=== PATIENT | female | born 1965 | race Caucasian/White ===

== ENCOUNTER 2023-01-05 10:17 | Outpatient (REF) | payer OTHER, SELFPAY ==
[2023-01-05 11:26] LABS: MANUAL DIFF FLAG NO
[2023-01-05 12:12] LABS: Basophils Absolute Auto 0.1 X10*3/uL (0.0-0.2); Eosinophils Absolute Auto 0.1 X10*3/uL (0.0-0.4); Eosinophils Percent Auto 2.3 % (0-4); Hematocrit 26.8 % (37.0-47.0); Hemoglobin 7.1 g/dl (12.0-16.0); Imm Gran Abs Auto 0.03 X10*3/uL (0.00-0.03); Imm Gran Pct Auto 0.5 % (0.0-0.4); Lymphocytes Absolute Auto 1.7 X10*3/uL (1.2-4.9); Lymphocytes Percent Auto 27.1 % (20-40); Mean Corpuscular HGB Conc 26.5 g/dl (31.0-35.0); Mean Corpuscular Hemoglobin 17.6 pg (27.0-33.0); Mean Corpuscular Volume 66.5 fL (80.0-98.0); Mean Platelet Volume 8.8 fL (9.4-12.3); Monocytes Absolute Auto 0.6 X10*3/uL (0.1-1.2); Monocytes Percent Auto 9.9 % (2-11); Neutrophils Absolute Auto 3.6 x10*3/uL (2.0-8.3); Neutrophils Percent Auto 58.2 % (45-73); Platelet Count 418 X10*3/uL (160-400); Red Blood Count 4.03 X10*6/uL (4.20-5.50); Red Cell Distribution Width 19.4 % (11.0-16.0); White Blood Count 6.1 X10*3/uL (4.8-10.8)
[2023-01-05 12:42] LABS: Anion Gap 11 (12-20)
[2023-01-05 12:48] LABS: Blood Urea Nitrogen 16 mg/dL (9-16); Calcium 9.3 mg/dL (8.4-10.2); Carbon Dioxide 28 mmol/L (22-29); Chloride 105 mmol/L (96-108); Erythrocyte Sedimentation Rate 9 MM/HR (0-20); Estimated Glomerular Filt Rate > 60; Glucose Random 88 mg/dL (60-115); Potassium 4.4 mmol/L (3.3-5.1); Sodium 140 mmol/L (135-145)
[2023-01-07 16:48] LABS: IgA 386 mg/dL (47-310); IgG 1369 mg/dL (600-1640); IgM 97 mg/dL (50-300)
[2023-01-14 20:44] LABS: Asperg fumigatus Precip Abs NEGATIVE (NEGATIVE); Micropoly faeni Abs NEGATIVE (NEGATIVE); Pigeon serum Abs NEGATIVE (NEGATIVE); Saccharo pora viridis Abs NEGATIVE (NEGATIVE); Thermo candidus Abs NEGATIVE (NEGATIVE); Thermoa vulgaris #1 NEGATIVE (NEGATIVE)
== END 2023-01-05 10:18 | disposition home or self-care (01) ==
LOC: HO.LAB 10:17
PROVIDERS: PCP Internal Medicine; Visit Provider Hospitalist
DX: J45.909 Unspecified asthma, uncomplicated (principal); R91.8 Other nonspecific abnormal finding of lung field; Z91.048 Other nonmedicinal substance allergy status
CPT/HCPCS: 36415; 80048; 82784; 85025; 85652; 86331; 86606; 86609

== ENCOUNTER 2023-03-22 11:08 | Outpatient (AMB) | payer OTHER, SELFPAY ==
--- NOTE | 2023-03-22 11:16 | A.OFFVIS_ITS ---
Intake Vital Signs 03/22/23 11:17 Height 5 ft 6 in Weight 188 lb 4.396 oz BMI 30.4 BP 124/70 Blood Pressure Location Lt brachial Position Sitting Pulse 92 Pulse Source Pulse Oximeter Pulse Oximetry (%) 96 Oxygen Delivery Method Room Air Intake Visit Reasons: Abnormal PFT Survey Questionnaire Designer Required: No Allergies No Known Allergies Allergy (Verified 03/22/23 11:19) HPI HPI Comments History of Present Illness Details he patient is a 57 year woman with that knee long history of lifelong asthma. 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 She was followed closely by Allergy initially by Dr. Lancaster and then afterwards continue getting allergy shots for multiple things. However that her disease management nurse retired and she stop doing the allergy shots. She noticed that when she started doing the allergy shots her symptoms started coming back with significant shortness of breath and chest tightness. Recently her son was mowing the lawn and she developed significant chest tightness and difficulty breathing. The patient does not have any inhalers at this time. She did follow-up with a local disease management nurse who underwent blood work. She has severe allergies with an IgE level of above 600. She has significant mold allergies as well. Although no data about her eosinophil level. We talked about the possibility of a lytic bronchopulmonary aspergillosis but at this point her IgE level was not high enough will have to check her IgG precipitants and also check her eosinophil level. She did have a chest x-ray demonstrating hyperinflation of the lungs suggesting of significant air trapping. In therefore she also underwent a PFT done at [facility] which I reviewed which demonstrated a moderate to severe obstruction consistent moderate to severe COPD. The patient currently is not on any maintenance respiratory therapy. Will go ahead and optimize his respiratory therapy at this time. Additional blood work will be warranted as well. Also to note part of the blood work did come back including a hemoglobin of 7.1. I did call the patient but only left a message. I had a long weight is trying to get in touch with her primary care doctor's office about 15 minutes online waiting although unfortunate does not appear to have a physician back line. Therefore, I could not provide the information to her physician about this critically low hemoglobin. I will have my staff try to get through but it seems like it is very difficult to get through to get that information past sore. I hope that we can get that information over specially since is a critical issue. 03/22/2023 the patient is here for a pulmonary follow-up visit. Overall the patient is feeling better. She did follow-up with GI and also her primary care doctor regarding critical hemoglobin. She is currently on iron and she had a full workup in no clear explanation for the drop in her will and. That being said hemoglobin is now better. Indeed is helping her respiratory capacity. In addition to that she has responded well to the Trelegy inhaler. She does have a moderate obstruction on her PFTs suggesting a fixed obstruction although it would also be uncontrolled asthma. It could also been that she may have had a flare-up doing her PFTs. therefore, since she is doing well will continue with current respiratory regimen and not Singulair. The next visit will plan to do a spirometry to see if her obstructive physiology has some increase her stability. From an allergy standpoint the patient may go back to her allergy shots at this time his respiratory status is better. I did provide her with a peak flow. Her peak flow was close to 400 mL which is reassuring. The patient will continue to monitor the peak flows. If her peak flows decline then she will call for further recommendations. [facility] Medical History (Updated 01/05/23 @ 20:32 by Matias Patterson MD) Allergy to mold Anemia Asthma Bronchitis Social History (Updated 01/05/23 @ 10:27 by Bianca Mattson Raj) Patient Tobacco Use Status: Never used Tobacco Review of Systems Const Denies fever(s) Eyes Denies change in vision ENT Reports nasal congestion and Reports nasal discharge Card Denies chest pain and Denies dyspnea on exertion Resp Reports cough, Denies dyspnea on exertion and Denies wheezing GI Reports no additional complaints Musc Reports no additional complaints Skin/Breast Denies rash Neuro Reports no additional complaints Oliver/Lymph Denies easy bleeding, Denies easy bruising and Denies lymphadenopathy Aller/Immun Denies wheezing Physical Exam Vital Signs: Last Vital Signs Pulse 92 03/22/23 11:17 BP 124/70 03/22/23 11:17 Pulse Ox 96 03/22/23 11:17 Oxygen Delivery Method Room Air 03/22/23 11:17 BMI result Body Mass Index 30.4 Const General: comfortable HEENT Head: Yes normocephalic Eyes General: appearance normal, both eyes and all related structures Neck Neck: Yes supple Chest Chest palpation & inspection: normal inspection of the chest Resp Effort & Inspection: normal respiratory effort Auscultation: no wheezes and diminished lung sounds Cardio Rate: regular rate Rhythm: regular rhythm Heart sounds: S1 normal heart sound present and S2 normal heart sound present GI Palpation (GI): Soft to palpation Skin General skin exam: no rashes or lesions noted Extrem General: Yes no clubbing, cyanosis or edema Assessment & Plan Assessment & Plan (1) Asthma: Comment: uncontrolled with a moderate to severe obstruction and hyperinflated lungs. Severe allergies with an elevated IgE. Eosinophils are normal. Code(s): J45.909 - Unspecified asthma, uncomplicated Qualifiers: Asthma complication type: uncomplicated Asthma persistence: persistent Asthma severity: severe Qualified Code(s): J45.50 - Severe persistent asthma, uncomplicated (2) Bronchitis: Code(s): J40 - Bronchitis, not specified as acute or chronic (3) Allergy to mold: Code(s): Z91.048 - Other nonmedicinal substance allergy status (4) Anemia: Code(s): D64.9 - Anemia, unspecified Qualifiers: Anemia type: unspecified type Qualified Code(s): D64.9 - Anemia, unspecified Plan continue Trelegy 200 daily Add Singulair Peak flow meter provided OK to go back to allergy shots from a pulmonary standpoint Consider Biologic therapy if worsens SAHIL as needed F/U 3-4 months Medications: New montelukast (Singulair) 10 mg PO BEDTIME 30 days 30 tabs 11RF J45.909 - Unspecified asthma, uncomplicated Coding Level of Care Code Est Pt Level 4 (87047) Diagnoses Asthma J45.50 Asthma complication type: uncomplicated Asthma persistence: persistent Asthma severity: severe Bronchitis J40 Allergy to mold Z91.048 Anemia D64.9 Anemia type: unspecified type Time Spent (min) 20
[2023-03-22 11:17] VITALS: BP 124/70; PULSE 92; O2SAT 96; BMI 30.4
== END 2023-03-22 11:47 | disposition home or self-care (01) ==
PROVIDERS: PCP Internal Medicine; Visit Provider Hospitalist
DX: J45.50 Severe persistent asthma, uncomplicated (principal); J40 Bronchitis, not specified as acute or chronic; Z91.048 Other nonmedicinal substance allergy status; D64.9 Anemia, unspecified
CPT/HCPCS: 99214

== ENCOUNTER → 2023-03-22 11:08 | Outpatient (BNVA) | payer OTHER, SELFPAY | PROVIDERS: PCP Internal Medicine; Visit Provider Hospitalist | DX: J45.909 Unspecified asthma, uncomplicated (principal); Z91.048 Other nonmedicinal substance allergy status; J40 Bronchitis, not specified as acute or chronic; J45.40 Moderate persistent asthma, uncomplicated; J44.9 Chronic obstructive pulmonary disease, unspecified ==

== ENCOUNTER 2023-08-09 10:52 | Outpatient (AMB) | payer OTHER, SELFPAY ==
--- NOTE | 2023-08-09 11:18 | MHC.OFFVIS ---
Intake Vital Signs 08/09/23 11:19 Height 5 ft 6 in Weight 195 lb BMI 31.5 Pulse 89 Pulse Source Pulse Oximeter Pulse Oximetry (%) 97 Oxygen Delivery Method Room Air Intake Visit Reasons: Abnormal PFT Production Control Planner Required: No Allergies No Known Allergies Allergy (Verified 08/09/23 11:20) HPI HPI Comments History of Present Illness Details he patient is a 57 year woman with that knee long history of lifelong asthma. 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 She was followed closely by Allergy initially by Dr. Lancaster and then afterwards continue getting allergy shots for multiple things. However that her improvement director retired and she stop doing the allergy shots. She noticed that when she started doing the allergy shots her symptoms started coming back with significant shortness of breath and chest tightness. Recently her son was mowing the lawn and she developed significant chest tightness and difficulty breathing. The patient does not have any inhalers at this time. She did follow-up with a local improvement director who underwent blood work. She has severe allergies with an IgE level of above 600. She has significant mold allergies as well. Although no data about her eosinophil level. We talked about the possibility of a lytic bronchopulmonary aspergillosis but at this point her IgE level was not high enough will have to check her IgG precipitants and also check her eosinophil level. She did have a chest x-ray demonstrating hyperinflation of the lungs suggesting of significant air trapping. In therefore she also underwent a PFT done at [facility] which I reviewed which demonstrated a moderate to severe obstruction consistent moderate to severe COPD. The patient currently is not on any maintenance respiratory therapy. Will go ahead and optimize his respiratory therapy at this time. Additional blood work will be warranted as well. Also to note part of the blood work did come back including a hemoglobin of 7.1. I did call the patient but only left a message. I had a long weight is trying to get in touch with her primary care doctor's office about 15 minutes online waiting although unfortunate does not appear to have a physician back line. Therefore, I could not provide the information to her physician about this critically low hemoglobin. I will have my staff try to get through but it seems like it is very difficult to get through to get that information past sore. I hope that we can get that information over specially since is a critical issue. 03/22/2023 the patient is here for a pulmonary follow-up visit. Overall the patient is feeling better. She did follow-up with GI and also her primary care doctor regarding critical hemoglobin. She is currently on iron and she had a full workup in no clear explanation for the drop in her will and. That being said hemoglobin is now better. Indeed is helping her respiratory capacity. In addition to that she has responded well to the Trelegy inhaler. She does have a moderate obstruction on her PFTs suggesting a fixed obstruction although it would also be uncontrolled asthma. It could also been that she may have had a flare-up doing her PFTs. therefore, since she is doing well will continue with current respiratory regimen and not Singulair. The next visit will plan to do a spirometry to see if her obstructive physiology has some increase her stability. From an allergy standpoint the patient may go back to her allergy shots at this time his respiratory status is better. I did provide her with a peak flow. Her peak flow was close to 400 mL which is reassuring. The patient will continue to monitor the peak flows. If her peak flows decline then she will call for further recommendations. 08/09/2023 the patient is here for pulmonary follow-up visit. The patient overall has been doing well. She continues on the Trelegy 200 also started the singular. She overall has been doing okay. Has not had to use her rescue inhaler which is reassuring except for once when she was burning some papers in the backyard and resulting in bronchospasms. Where were season usually seen the springtime. The patient is no longer getting allergy shots. If her symptoms worsen it would be reasonable to consider biologic therapy. Will have her get blood work done in the springtime to assess her eosinophil level and also her IgE level. From a hemoglobin standpoint the patient is doing better therefore that is no longer an active issue. He COUNTS INCLUDE 234 BEDS AT THE [facility] Medical History (Updated 08/09/23 @ 22:17 by Matias Patterson MD) Anemia Bronchitis Allergy to mold Asthma Social History (Updated 01/05/23 @ 10:27 by MARY Mcelroy) Patient Tobacco Use Status: Never used Tobacco Review of Systems Const Denies fever(s) Eyes Denies change in vision ENT Reports nasal congestion and Reports nasal discharge Card Denies chest pain and Denies dyspnea on exertion Resp Reports cough, Denies dyspnea on exertion and Denies wheezing GI Reports no additional complaints Musc Reports no additional complaints Skin/Breast Denies rash Neuro Reports no additional complaints Oliver/Lymph Denies easy bleeding, Denies easy bruising and Denies lymphadenopathy Aller/Immun Denies wheezing Physical Exam Vital Signs: Last Vital Signs Pulse 89 08/09/23 11:19 Pulse Ox 97 08/09/23 11:19 Oxygen Delivery Method Room Air 08/09/23 11:19 BMI result Body Mass Index 31.5 Const General: comfortable HEENT Head: Yes normocephalic Eyes General: appearance normal, both eyes and all related structures Neck Neck: Yes supple Chest Chest palpation & inspection: normal inspection of the chest Resp Effort & Inspection: normal respiratory effort Auscultation: no wheezes and diminished lung sounds Cardio Rate: regular rate Rhythm: regular rhythm Heart sounds: S1 normal heart sound present and S2 normal heart sound present GI Palpation (GI): Soft to palpation Skin General skin exam: no rashes or lesions noted Extrem General: Yes no clubbing, cyanosis or edema Office Procedures Flu Questionnaire Does the patient have a severe egg allergy?: No Does the patient have severe life threatening allergies?: No Does the patient have a fever or illness today?: No Has the patient ever had Guillain-Laurel Syndrome?: No Has the patient ever had any past reaction to a flu shot?: No Immunizations flu vacc [id number] 6mos up(PF) 60 mcg(15 mcgx4)/0.5 mL IM syringe Performing Provider: Matias Patterson MD Performing Location: [facility] Administered by: Annette Ruiz LPN on 08/09/23 11:39 Dose Route Admin Location Dispensed Lot Number Expiration Date [id number] 0.5 mL IM Left Deltoid 0.5 mL [id number] 03/10/24 [id number] Scaffold VIS Given Date VIS Provided VIS Publication Date 08/09/23 Single Vaccine 21 Eligibility Eligibility Date Funding Source Not [facility] Eligible 08/09/23 Private Assessment & Plan Assessment & Plan (1) Asthma: Comment: uncontrolled with a moderate to severe obstruction and hyperinflated lungs. Severe allergies with an elevated IgE. Eosinophils are normal. Code(s): J45.909 - Unspecified asthma, uncomplicated Qualifiers: Asthma complication type: uncomplicated Asthma persistence: persistent Asthma severity: severe Qualified Code(s): J45.50 - Severe persistent asthma, uncomplicated (2) Bronchitis: Comment: better Code(s): J40 - Bronchitis, not specified as acute or chronic (3) Allergy to mold: Code(s): Z91.048 - Other nonmedicinal substance allergy status (4) Anemia: Comment: better Code(s): D64.9 - Anemia, unspecified Qualifiers: Anemia type: unspecified type Qualified Code(s): D64.9 - Anemia, unspecified Plan continue Trelegy 200 daily continue Singulair Peak flow SAHIL as needed spring bloddwork consider Biologic therapy if symptoms worsen F/U 4 months Orders: Orders Complete Blood Count Auto Diff Today J45.909 - Unspecified asthma, uncomplicated, Z91.048 - Other nonmedicinal substance allergy status Erythrocyte Sedimentation Rate Today J45.909 - Unspecified asthma, uncomplicated, Z91.048 - Other nonmedicinal substance allergy status Influenza [id number] Immunization Today J45.909 - Unspecified asthma, uncomplicated Basic Metabolic Panel Today J45.909 - Unspecified asthma, uncomplicated, Z91.048 - Other nonmedicinal substance allergy status Immunoglobulin E Today J45.909 - Unspecified asthma, uncomplicated, Z91.048 - Other nonmedicinal substance allergy status Coding Level of Care Code Est Pt Level 4 (66721) Diagnoses Severe persistent asthma without complication J45.50 Asthma complication type: uncomplicated Asthma persistence: persistent Asthma severity: severe Bronchitis J40 Allergy to mold Z91.048 Anemia, unspecified type D64.9 Anemia type: unspecified type Time Spent (min) 16
[2023-08-09 11:19] VITALS: PULSE 89; O2SAT 97; BMI 31.5
== END 2023-08-09 11:41 | disposition home or self-care (01) ==
PROVIDERS: PCP Internal Medicine; Visit Provider Hospitalist
DX: J45.50 Severe persistent asthma, uncomplicated (principal); J40 Bronchitis, not specified as acute or chronic; Z91.048 Other nonmedicinal substance allergy status; D64.9 Anemia, unspecified
CPT/HCPCS: 99214

== ENCOUNTER → 2023-08-09 10:52 | Outpatient (BNVA) | payer OTHER, SELFPAY | PROVIDERS: PCP Internal Medicine; Visit Provider Hospitalist | DX: J45.40 Moderate persistent asthma, uncomplicated (principal); J40 Bronchitis, not specified as acute or chronic; D64.9 Anemia, unspecified; Z91.048 Other nonmedicinal substance allergy status; Z79.899 Other long term (current) drug therapy; Z23 Encounter for immunization | CPT/HCPCS: 90471; 90686 ==

== ENCOUNTER 2024-01-03 10:57 | Outpatient (AMB) | payer OTHER, MEDICAID, SELFPAY ==
--- NOTE | 2024-01-03 11:00 | MHC.OFFVIS ---
Vital Signs 01/03/24 11:01 Height 5 ft 6 in Weight 190 lb BMI 30.7 Pulse 89 Pulse Source Pulse Oximeter Pulse Oximetry (%) 95 Oxygen Delivery Method Room Air Intake Visit Reasons: Asthma Director Of Undergraduate Admissions Required: No Allergies No Known Allergies Allergy (Verified 01/03/24 11:02) HPI Comments Details: he patient is a 58 year woman with that knee long history of lifelong asthma. 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 She was followed closely by Allergy initially by Dr. Lancaster and then afterwards continue getting allergy shots for multiple things. However that her wire coiler machine operator retired and she stop doing the allergy shots. She noticed that when she started doing the allergy shots her symptoms started coming back with significant shortness of breath and chest tightness. Recently her son was mowing the lawn and she developed significant chest tightness and difficulty breathing. The patient does not have any inhalers at this time. She did follow-up with a local wire coiler machine operator who underwent blood work. She has severe allergies with an IgE level of above 600. She has significant mold allergies as well. Although no data about her eosinophil level. We talked about the possibility of a lytic bronchopulmonary aspergillosis but at this point her IgE level was not high enough will have to check her IgG precipitants and also check her eosinophil level. She did have a chest x-ray demonstrating hyperinflation of the lungs suggesting of significant air trapping. In therefore she also underwent a PFT done at [facility] which I reviewed which demonstrated a moderate to severe obstruction consistent moderate to severe COPD. The patient currently is not on any maintenance respiratory therapy. Will go ahead and optimize his respiratory therapy at this time. Additional blood work will be warranted as well. Also to note part of the blood work did come back including a hemoglobin of 7.1. I did call the patient but only left a message. I had a long weight is trying to get in touch with her primary care doctor's office about 15 minutes online waiting although unfortunate does not appear to have a physician back line. Therefore, I could not provide the information to her physician about this critically low hemoglobin. I will have my staff try to get through but it seems like it is very difficult to get through to get that information past sore. I hope that we can get that information over specially since is a critical issue. 03/22/2023 the patient is here for a pulmonary follow-up visit. Overall the patient is feeling better. She did follow-up with GI and also her primary care doctor regarding critical hemoglobin. She is currently on iron and she had a full workup in no clear explanation for the drop in her will and. That being said hemoglobin is now better. Indeed is helping her respiratory capacity. In addition to that she has responded well to the Trelegy inhaler. She does have a moderate obstruction on her PFTs suggesting a fixed obstruction although it would also be uncontrolled asthma. It could also been that she may have had a flare-up doing her PFTs. therefore, since she is doing well will continue with current respiratory regimen and not Singulair. The next visit will plan to do a spirometry to see if her obstructive physiology has some increase her stability. From an allergy standpoint the patient may go back to her allergy shots at this time his respiratory status is better. I did provide her with a peak flow. Her peak flow was close to 400 mL which is reassuring. The patient will continue to monitor the peak flows. If her peak flows decline then she will call for further recommendations. 01/03/2024 the patient is here for pulmonary follow-up visit. The patient overall has been doing well. She continues on the Trelegy 200 also started the singular. She overall has been doing okay. Has not had to use her rescue inhaler which is reassuring except for once when she was burning some papers in the backyard and resulting in bronchospasms. Where were season usually seen the springtime. The patient is no longer getting allergy shots. If her symptoms worsen it would be reasonable to consider biologic therapy. the patient is concerned because her blood pressure has been elevated. She is wondering if the Trelegy could be doing that. Will go ahead and decrease her Trelegy to the 100 mcg dose to minimize any adverse effects. [facility] Medical History (Updated 01/03/24 @ 20:55 by Matias Patterson MD) Anemia Bronchitis Allergy to mold Asthma Social History (Updated 01/05/23 @ 10:27 by MARY Mcelroy) Patient Tobacco Use Status: Never used Tobacco Review of Systems Const Denies fever(s) Eyes Denies change in vision ENT Reports nasal congestion and Reports nasal discharge Card Denies chest pain and Denies dyspnea on exertion Resp Reports cough, Denies dyspnea on exertion and Denies wheezing GI Reports no additional complaints Musc Reports no additional complaints Skin/Breast Denies rash Neuro Reports no additional complaints Oliver/Lymph Denies easy bleeding, Denies easy bruising and Denies lymphadenopathy Aller/Immun Denies wheezing Physical Exam Vital Signs: Last Vital Signs Pulse 89 01/03/24 11:01 Pulse Ox 95 01/03/24 11:01 Oxygen Delivery Method Room Air 01/03/24 11:01 BMI result Body Mass Index 30.7 Const General: comfortable HEENT Head: Yes normocephalic Eyes General: appearance normal, both eyes and all related structures Neck Neck: Yes supple Chest Chest palpation & inspection: normal inspection of the chest Resp Effort & Inspection: normal respiratory effort Auscultation: no wheezes and diminished lung sounds Cardio Rate: regular rate Rhythm: regular rhythm Heart sounds: S1 normal heart sound present and S2 normal heart sound present GI Palpation (GI): Soft to palpation Skin General skin exam: no rashes or lesions noted Extrem General: Yes no clubbing, cyanosis or edema Assessment & Plan Assessment & Plan (1) Asthma: Comment: Severe allergies with an elevated IgE. Eosinophils are normal. Code(s): J45.909 - Unspecified asthma, uncomplicated Category: Medical Qualifiers: Asthma complication type: uncomplicated Asthma persistence: persistent Asthma severity: severe Qualified Code(s): J45.50 - Severe persistent asthma, uncomplicated (2) Bronchitis: Comment: better Code(s): J40 - Bronchitis, not specified as acute or chronic Category: Medical (3) Allergy to mold: Code(s): Z91.048 - Other nonmedicinal substance allergy status Category: Medical (4) Anemia: Comment: better Code(s): D64.9 - Anemia, unspecified Category: Medical Qualifiers: Anemia type: unspecified type Qualified Code(s): D64.9 - Anemia, unspecified Plan continue Trelegy 200 daily->100mcg continue Singulair SAHIL as needed spring time bloddwork consider Biologic therapy if symptoms worsen F/U 6-12 months Medications: New [id number] 100-62.5-25 mcg (Trelegy Ellipta) 1 inh inhalation DAILY 30 days 60 ea 11RF J44.9 - Chronic obstructive pulmonary disease, unspecified Coding Level of Care Code Tele Est Pt Level 4 (94936) Diagnoses Severe persistent asthma without complication J45.50 Asthma complication type: uncomplicated Asthma persistence: persistent Asthma severity: severe Bronchitis J40 Allergy to mold Z91.048 Anemia, unspecified type D64.9 Anemia type: unspecified type Time Spent (min) 17
[2024-01-03 11:01] VITALS: PULSE 89; O2SAT 95; BMI 30.7
== END 2024-01-03 11:18 | disposition home or self-care (01) ==
PROVIDERS: PCP Internal Medicine; Visit Provider Hospitalist
DX: J45.50 Severe persistent asthma, uncomplicated (principal); J40 Bronchitis, not specified as acute or chronic; Z91.048 Other nonmedicinal substance allergy status; D64.9 Anemia, unspecified
CPT/HCPCS: 99214

== ENCOUNTER → 2024-01-03 10:57 | Outpatient (BNVA) | payer OTHER, MEDICAID, SELFPAY | PROVIDERS: PCP Internal Medicine; Visit Provider Hospitalist | DX: J45.909 Unspecified asthma, uncomplicated (principal); Z91.048 Other nonmedicinal substance allergy status; J40 Bronchitis, not specified as acute or chronic; J45.40 Moderate persistent asthma, uncomplicated; J44.9 Chronic obstructive pulmonary disease, unspecified ==

== ENCOUNTER 2025-01-02 11:09 | Outpatient (AMB) | payer OTHER, SELFPAY ==
[2025-01-02 11:12] VITALS: BP 134/66; PULSE 85; O2SAT 97; BMI 31.7
--- NOTE | 2025-01-02 11:12 | MHC.OFFVIS ---
Vital Signs 01/02/25 11:12 Height 5 ft 6 in Weight 196 lb 3.382 oz BMI 31.7 BP 134/66 Blood Pressure Location Lt brachial Position Sitting Pulse 85 Pulse Source Pulse Oximeter Pulse Oximetry (%) 97 Oxygen Delivery Method Room Air Intake Visit Reasons: Asthma Dental Service Chief Required: No Accompanied by: Self / Same As Patient Allergies No Known Allergies Allergy (Verified 01/02/25 11:16) HPI Comments Details: 59 year woman with that knee long history of lifelong asthma. 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 She was followed closely by Allergy initially by Dr. Lancaster and then afterwards continue getting allergy shots for multiple things. However that her helicopter utility aircrewman retired and she stop doing the allergy shots. She noticed that when she started doing the allergy shots her symptoms started coming back with significant shortness of breath and chest tightness. Recently her son was mowing the lawn and she developed significant chest tightness and difficulty breathing. The patient does not have any inhalers at this time. She did follow-up with a local helicopter utility aircrewman who underwent blood work. She has severe allergies with an IgE level of above 600. She has significant mold allergies as well. Although no data about her eosinophil level. We talked about the possibility of a lytic bronchopulmonary aspergillosis but at this point her IgE level was not high enough will have to check her IgG precipitants and also check her eosinophil level. She did have a chest x-ray demonstrating hyperinflation of the lungs suggesting of significant air trapping. In therefore she also underwent a PFT done at [facility] which I reviewed which demonstrated a moderate to severe obstruction consistent moderate to severe COPD. The patient currently is not on any maintenance respiratory therapy. Will go ahead and optimize his respiratory therapy at this time. Additional blood work will be warranted as well. Also to note part of the blood work did come back including a hemoglobin of 7.1. I did call the patient but only left a message. I had a long weight is trying to get in touch with her primary care doctor's office about 15 minutes online waiting although unfortunate does not appear to have a physician back line. Therefore, I could not provide the information to her physician about this critically low hemoglobin. I will have my staff try to get through but it seems like it is very difficult to get through to get that information past sore. I hope that we can get that information over specially since is a critical issue. 03/22/2023 the patient is here for a pulmonary follow-up visit. Overall the patient is feeling better. She did follow-up with GI and also her primary care doctor regarding critical hemoglobin. She is currently on iron and she had a full workup in no clear explanation for the drop in her will and. That being said hemoglobin is now better. Indeed is helping her respiratory capacity. In addition to that she has responded well to the Trelegy inhaler. She does have a moderate obstruction on her PFTs suggesting a fixed obstruction although it would also be uncontrolled asthma. It could also been that she may have had a flare-up doing her PFTs. therefore, since she is doing well will continue with current respiratory regimen and not Singulair. The next visit will plan to do a spirometry to see if her obstructive physiology has some increase her stability. From an allergy standpoint the patient may go back to her allergy shots at this time his respiratory status is better. I did provide her with a peak flow. Her peak flow was close to 400 mL which is reassuring. The patient will continue to monitor the peak flows. If her peak flows decline then she will call for further recommendations. 01/03/2024 the patient is here for pulmonary follow-up visit. The patient overall has been doing well. She continues on the Trelegy 200 also started the singular. She overall has been doing okay. Has not had to use her rescue inhaler which is reassuring except for once when she was burning some papers in the backyard and resulting in bronchospasms. Where were season usually seen the springtime. The patient is no longer getting allergy shots. If her symptoms worsen it would be reasonable to consider biologic therapy. the patient is concerned because her blood pressure has been elevated. She is wondering if the Trelegy could be doing that. Will go ahead and decrease her Trelegy to the 100 mcg dose to minimize any adverse effects. 01/02/2025 the patient is here for a pulmonary follow-up visit. She is doing well from the respiratory status. Her lungs are well and she does tolerate a respiratory inhalers as prescribed. She has not required any prednisone or her rescue inhaler. Her major issue issue is her nasal passages. Significant nasal congestion. The patient has been using nasal sprays with only partial improvement. Her allergies are more significant during the spring. She does have a follow up with her helicopter utility aircrewman soon. Based on her bloodwork she could consider Biologic therapies. The patient also had aCXR back in 2022 demonstrating alarge hiatal hernia. We did talk the importance of reflux diet and sleeping elevated. She had an EGD dumenting the Hiatal hernia. [facility] Medical History (Updated 01/02/25 @ 19:58 by Matias Patterson MD) Hiatal hernia Anemia Bronchitis Allergy to mold Asthma Social History (Updated 01/02/25 @ 11:19 by Dhara Mills CMA) Alcohol intake: current Alcohol intake frequency: holidays/special occasions only Patient Tobacco Use Status: Never used Tobacco Review of Systems Const Denies chills, Denies fatigue, Denies fever(s), Denies weight gain and Denies weight loss Eyes Denies change in vision ENT Denies dizziness, Reports nasal congestion, Reports nasal discharge and Reports nasal obstruction Card Denies chest pain, Denies leg edema, Denies lightheadedness, Denies palpitations, Reports dyspnea on exertion, Denies orthopnea and Denies other Resp Reports cough, Reports dyspnea on exertion and Reports wheezing GI Denies hematochezia and Denies change in stool character Musc Denies abnormal gait, Denies muscle weakness, Denies numbness, Denies radiating pain into limb and Denies tingling Skin/Breast Denies rash Neuro Denies abnormal gait, Denies dizziness, Denies numbness and Denies tingling Endo Denies fatigue and Denies palpitations Oliver/Lymph Denies easy bleeding, Denies easy bruising and Denies lymphadenopathy Aller/Immun Reports wheezing Physical Exam Vital Signs: Last Vital Signs Pulse 85 01/02/25 11:12 BP 134/66 01/02/25 11:12 Pulse Ox 97 01/02/25 11:12 Oxygen Delivery Method Room Air 01/02/25 11:12 BMI result Body Mass Index 31.7 Const General: comfortable HEENT Head: Yes normocephalic Eyes General: appearance normal, both eyes and all related structures Neck Neck: Yes supple Chest Chest palpation & inspection: normal inspection of the chest Resp Effort & Inspection: normal respiratory effort Auscultation: no wheezes and diminished lung sounds Cardio Rate: regular rate Rhythm: regular rhythm Heart sounds: S1 normal heart sound present and S2 normal heart sound present GI Palpation (GI): Soft to palpation Skin General skin exam: no rashes or lesions noted Extrem General: Yes no clubbing, cyanosis or edema Assessment & Plan Assessment & Plan (1) Asthma: Comment: Severe allergies with an elevated IgE. Eosinophils are normal. Code(s): J45.909 - Unspecified asthma, uncomplicated Category: Medical Qualifiers: Asthma complication type: uncomplicated Asthma persistence: persistent Asthma severity: severe Qualified Code(s): J45.50 - Severe persistent asthma, uncomplicated (2) Bronchitis: Comment: better Code(s): J40 - Bronchitis, not specified as acute or chronic Category: Medical (3) Allergy to mold: Code(s): Z91.048 - Other nonmedicinal substance allergy status Category: Medical (4) Anemia: Comment: better Code(s): D64.9 - Anemia, unspecified Category: Medical Qualifiers: Anemia type: unspecified type Qualified Code(s): D64.9 - Anemia, unspecified (5) Hiatal hernia: Code(s): K44.9 - Diaphragmatic hernia without obstruction or gangrene Category: Medical Plan decrease Trelegy 100 daily due to HBP continue Singulair SAHIL as needed consider Biologic therapy if symptoms worsen CXR reflux diet sleep elavated PPI F/U 6-12 months Orders: Orders XR chest 2V Today J45.50 - Severe persistent asthma, uncomplicated Medications: New igvtydvhszw-sixfktsbx-vezobkaz 100-62.5-25 mcg (Trelegy Ellipta) 1 inh inhalation DAILY 30 days 60 ea 11RF J44.9 - Chronic obstructive pulmonary disease, unspecified Discontinued bogsoakofmq-gcjvzucmo-ckibfery 200-62.5-25 mcg (Trelegy Ellipta) Discontinued Reason: Doctor's Order 1 ea PO DAILY 60 ea 12RF Coding Level of Care Code Est Pt Level 4 (06295) Complex EM visit Add On G2211 Diagnoses Severe persistent asthma without complication J45.50 Asthma complication type: uncomplicated Asthma persistence: persistent Asthma severity: severe Bronchitis J40 Allergy to mold Z91.048 Anemia, unspecified type D64.9 Anemia type: unspecified type Hiatal hernia K44.9 Time Spent (min) 18
--- OUTSIDE RECORDS SUMMARY | 2025-01-02 13:19 | XMS_ITS | Clinical Summary ---
Author Organization [facility] Address [address] [place] [address] Care Team Providers Care Interior Decorator Painting Name Role Phone Unavailable Primary Care Provider Unavailabl e Allergies Active Allergy Reactions Criticality Noted Date Comments Latex 05/05/2022 Medications Medication Sig Dispensed Refills Start Date End Date Status Cholecalciferol 50 MCG (1999) TABS 0 01/30/2019 Active omeprazole (PriLOSEC) 20 MG capsule Take 20 mg by mouth daily. 0 03/21/2022 Active fluticasone (FLONASE) 50 MCG/ACT nasal spray spray or apply inside Nose. 0 02/28/2019 Active fexofenadine (Franchesca Allergy) 180 MG tablet Take 180 mg by mouth daily. 0 Active TSDEFFNS-[id number]-HL, OTIC, (CORTISPORIN) 1 % SOLN otic solution Place 4 drops into the right ear 4 (four) times a day. 5 mL 0 05/05/2022 Active Social History Tobacco Use Types Packs/Day Years Used Date Smoking Tobacco: Never Assessed Sex and Gender Information Value Date Recorded Sex Assigned at Not on file Gender Identity Not on file Sexual Orientation Not on file Job Start Date Occupation Industry Not on file Not on file Not on file Last Filed Vital Signs Vital Sign Reading Time Taken Comments Blood Pressure 142/84 05/05/2022 8:03 AM EDT Pulse 68 05/05/2022 8:03 AM EDT Temperature 36.2 ??C (97.2 ??F) 05/05/2022 8:03 AM ED T Respiratory Rate - - Oxygen Saturation 93% 05/05/2022 8:03 AM EDT Inhaled Oxygen Concentration - - Weight 82.5 kg (181 lb 12.8 oz) 05/05/2022 8:03 AM EDT Height - - Body Mass Index - - Plan of Treatment Health Maintenance Due Date Last Done Comments Hepatitis C Screening 1965 COVID-19 Vaccine (#1) 02/21/1965 Depression Screening 1976 Preventative Health Evaluation 1982 DTap / Tdap / Td (1 - Tdap) 1983 Cervical Cancer Screening (P ap Smear) 1985 Colon Cancer Screening (Colonoscopy) 2009 Breast Cancer Screening (Mammogram) 2014 Shingrix-Zoster Vaccine (1 of 2) 2014 Influenza Vaccine (#1) 2024 RSV Adult > 60+ Yrs or Pregn ant (1 - 1-dose 75+ series) 2039 Hepatitis B Vaccines Aged Out No long er eligible based on patient's age to complete this topic Pneumococcal Vaccine Aged Out No long er eligible based on patient's age to complete this topic RSV Ped < 20 months Aged Out No longe r eligible based on patient's age to complete this topic
--- OUTSIDE RECORDS SUMMARY | 2025-01-02 13:19 | XMS_ITS | Clinical Summary ---
Author Organization [facility] [address] Address [address] [place] [address] Phone Care Team Providers Care Claims Representative Name Role Phone Tess Melo MD Primary Care Provider Allergies Active Allergy Reactions Criticality Noted Date Comments Latex 09/19/2024 Medications triamcinolone (NASACORT) 55 mcg nasal inhaler INHALE 2 SPRAYS EACH NOSTRIL ONCE A DAY X 1 MONTH THEN DECREASE 1 SPRAY ONCE A DAY 3 Active omeprazole (PriLOSEC) [address] capsule Take 1 capsule (20 mg total) by mouth 1 (one) time each day. Active montelukast (SINGULAIR) 10 mg tablet TAKE 1 TABLET BY MOUTH DAILY AT BEDTIME FOR 30 DAYS 4 Active Trelegy Ellipta 200-62.5-25 mcg inhaler Inhale 1 puff (200 mcg total) by mouth 1 (one) time each day. 4 Active fexofenadine (Franchesca Allergy) 180 mg tablet 1 tablet, By Mouth, Daily, PRN for allergy symptoms, # 10 tablet, 0 Refills, Maintenance, 06/18/24 8:40:00 EDT, Tablet, Partial fill upon patient request if the prescription is for a schedule II opioid drug. 4 Active cholecalciferol (VITAMIN D-3) 50 mcg (2,000 unit) tablet 9 Active amLODIPine (NORVASC) 5 mg tablet Take 1 tablet (5 mg total) by mouth 1 (one) time each day. 5 Active albuterol HFA (PROAIR HFA ; PROVENTIL HFA ; VENTOLIN HFA) 90 mcg/actuation inhaler Inhale 2 puffs by mouth every 4 (four) hours. 4 Active omeprazole OTC (PriLOSEC OTC) 20 mg EC tabletIndicatio ns:Gastroesopha geal reflux disease without esophagitis Take 1 tablet (20 mg total) by mouth 1 (one) time each day. Do not crush, chew, or split. 90 tablet 3 5 09/19/19 26 Active Active Problems Problem Noted Date Diagnosed Date Gastroesophageal reflux disease without esophagi tis 09/19/2024 Assessment & Plan (09/19/2024 8:21 AM EST): Orders: omeprazole OTC (PriLOSEC OTC) 20 mg EC tablet; Take 1 tablet (20 mg total) by mouth 1 (one) time each day. Do not crush, chew, or split. HTN (hypertension) 09/19/2024 Asthma 09/19/2024 Surgical History Surgery Date Site/Laterality Comments SECTION, LOW TRANSVERSE x 1 COLONOSCOPY 01/09/2023 - 02/08/2023 for anemia - diverticulosis, hemorrhoids (10 yr) COLONOSCOPY 05/12/2018 - 06/10/2018 9 yr ESOPHAGOGASTRODUODENOSCOPY 01/09/2023 - 02/08/2023 for anemia - med hiatal hernia, nl small bowel bx ESOPHAGOGASTRODUODENOSCOPY 05/12/2018 - 06/10/2018 reflux esophagitis Social History Tobacco Use Types Packs/Day Years Used Date Smoking Tobacco: Never Tobacco Cessation:Counseling Given: Not Answered Alcohol Use Standard Drinks/Week Comments Not Asked 0 (1 standard drink = 0.6 oz pur e alcohol) social Comments Unknown Sex and Gender Information Value Date Recorded Sex Assigned at Not on file Legal Sex Female 2:11 AM EST Gender Identity Not on file Sexual Orientation Not on file Obstetrics History Last Filed Vital Signs Vital Sign Reading Time Taken Comments Blood Pressure 142/84 05/05/2022 8:03 AM EDT Pulse 68 05/05/2022 8:03 AM EDT Temperature - - Respiratory Rate - - Oxygen Saturation - - Inhaled Oxygen Concentration - - Weight 88.9 kg (196 lb) 09/19/2024 7:59 AM EST Height 167.6 cm (5' 6 ) 09/19/2024 7:59 AM EST Body Mass Index 31.64 09/19/2024 7:59 AM EST Plan of Treatment Health Maintenance Due Date Last Done Comments Breast Cancer Screening 1964 DTaP,Tdap,and Td Vaccines (1 - Tdap) 1983 Pneumococcal Vaccine: 50+ Years (1 of 2 - PCV) 1983 Pneumococcal Vaccine: Pediatrics (0 to 5 Years) and At-Risk Patients (6 to 64 Years) (1 of 2 - PCV) 1983 Cervical Cancer Screening: Pap Smear 1985 Zoster Vaccines (1 of 2) 2014 Cholesterol Screening (Lipid Panel) 08/14/2022 Depression Screening 08/14/2022 HIV Screening 08/14/2022 Hepatitis C Screening 08/14/2022 Social Influencers of Health Screening 08/14/2022 COVID-19 Vaccine ( season) 2024 09/14/2021, 12/14/2020, 11/23/2020 RSV Immunization Adult Patients (1 - Risk 60-74 years 1-dose series) 2024 Hypertension/CHF/CAD Annual BMP Blood Test 09/19/2024 Influenza Vaccine (Season Ended) 2025 08/09/2023, 06/23/2022, 07/21/2021, Additional history exists Colorectal Cancer Screening: Colonoscopy 09/20/2034 09/20/2024 HIB Vaccines Aged Out No longer eligi ble based on patient's age to complete this topic HPV Vaccines Aged Out No longer eligi ble based on patient's age to complete this topic Hepatitis A Vaccines Aged Out No long er eligible based on patient's age to complete this topic Hepatitis B Vaccines Aged Out No long er eligible based on patient's age to complete this topic IPV Vaccines Aged Out No longer eligi ble based on patient's age to complete this topic MMR Vaccines Aged Out No longer eligi ble based on patient's age to complete this topic Meningococcal ACWY Vaccine Aged Out N o longer eligible based on patient's age to complete this topic Meningococcal B Vaccine Aged Out No l onger eligible based on patient's age to complete this topic RSV Immunization Patients Under 20 months Aged Out No longer eligible based on patient's age to complete this topic Varicella Vaccines Aged Out No longer eligible based on patient's age to complete this topic Procedures Procedure Name Priority Date/Time Associated Diagnosis Comments COLONOSCOPY Routine 09/20/2024 9:12 AM EST from Last 3 Months or Most Recently Relevant to Health Maintenance Results * COLONOSCOPY (09/20/2024 9:12 AM EST) Anatomical Region Laterality Modality Endoscopy us Historical Provider GI~PROCEDURE ORDERABLES F inal Result from Last 3 Months or Most Recently Relevant to Health Maintenance Insurance [employer] [facility] Care Teams Claims Representative Relationship Specialty Start Date End Date Tess Melo MD [address] [place] [address] PCP - General Internal Medicine 09/10/24
== END 2025-01-02 11:39 | disposition home or self-care (01) ==
LOC: HO.HPS 11:10
PROVIDERS: PCP Internal Medicine; Visit Provider Hospitalist
DX: J45.50 Severe persistent asthma, uncomplicated (principal); J40 Bronchitis, not specified as acute or chronic; Z91.048 Other nonmedicinal substance allergy status; D64.9 Anemia, unspecified; K44.9 Diaphragmatic hernia without obstruction or gangrene
CPT/HCPCS: 99214

== ENCOUNTER 2025-02-28 14:00 | Outpatient (AMB) | payer OTHER, SELFPAY ==
[2025-02-28 14:01] VITALS: BP 138/67; PULSE 92; O2SAT 97; BMI 29.2
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
--- OUTSIDE RECORDS SUMMARY | 2025-02-28 14:02 | XMS_ITS | Clinical Summary ---
Author Organization [facility] Address [address] [place] [address] Care Team Providers Care Radio Talk Show Host Name Role Phone Unavailable Primary Care Provider [...] 180 mg by mouth daily. 0 Active [id number]-[id number]-IV, OTIC, (CORTISPORIN) 1 % SOLN otic solution [...] 68 05/05/2022 8:03 AM EDT Temperature 36.2 C (97.2 F) 05/05/2022 8:03 AM EDT Respiratory Rate - - Oxygen Saturation 93% [...] Vaccine (1 of 2) 2014 Influenza Vaccine (Season Ended) 2025 RSV Adult > 60+ Yrs or Pregn [...]
== END 2025-02-28 14:35 | disposition home or self-care (01) ==
LOC: HO.HPS 14:00
PROVIDERS: PCP Internal Medicine; Visit Provider Hospitalist
DX: J45.50 Severe persistent asthma, uncomplicated (principal)

== ENCOUNTER → 2025-02-28 14:00 | Outpatient (BNVA) | payer OTHER, SELFPAY | PROVIDERS: PCP Internal Medicine; Visit Provider Hospitalist | DX: J45.51 Severe persistent asthma with (acute) exacerbation (principal); J40 Bronchitis, not specified as acute or chronic; Z91.048 Other nonmedicinal substance allergy status; D64.9 Anemia, unspecified; K44.9 Diaphragmatic hernia without obstruction or gangrene | CPT/HCPCS: 94640 ==

== ENCOUNTER 2025-06-16 14:39 | Outpatient (REF) | payer OTHER, SELFPAY ==
[2025-06-16 15:27] LABS: MANUAL DIFF FLAG NO
[2025-06-16 16:16] LABS: Hematocrit 25.6 % (37.0-47.0); Imm Gran Abs Auto 0.03 X10*3/uL (0.00-0.03); Imm Gran Pct Auto 0.4 % (0.0-0.4); Lymphocytes Absolute Auto 0.9 X10*3/uL (1.2-4.9); Mean Corpuscular HGB Conc 27.3 g/dl (31.0-35.0); Mean Corpuscular Hemoglobin 17.8 pg (27.0-33.0); Mean Corpuscular Volume 65.1 fL (80.0-98.0); NRBC Abs Auto 0.000 X10*3/uL (0.0-0.012); NRBC Pct Auto 0.0 /100WBC (0.0-0.2); Platelet Count 416 X10*3/uL (160-400); Red Blood Count 3.93 X10*6/uL (4.20-5.50); White Blood Count 8.1 X10*3/uL (4.8-10.8)
[2025-06-16 16:32] LABS: Hemoglobin 7.0 g/dl (12.0-16.0)
[2025-06-23 12:24] LABS: Asperg fumigatus Precip Abs NEGATIVE (NEGATIVE); Micropoly faeni Abs NEGATIVE (NEGATIVE); Saccharo pora viridis Abs NEGATIVE (NEGATIVE); Thermo candidus Abs NEGATIVE (NEGATIVE)
== END 2025-06-16 14:40 | disposition home or self-care (01) ==
LOC: HO.LAB 14:39
PROVIDERS: PCP Internal Medicine; Visit Provider Hospitalist
DX: J45.51 Severe persistent asthma with (acute) exacerbation (principal); J40 Bronchitis, not specified as acute or chronic; D64.9 Anemia, unspecified; K44.9 Diaphragmatic hernia without obstruction or gangrene; Z01.84 Encounter for antibody response examination; Z91.048 Other nonmedicinal substance allergy status; Z79.52 Long term (current) use of systemic steroids
CPT/HCPCS: 36415; 82784; 82785; 85025; 85652; 86331; 86606; 86609

== ENCOUNTER 2025-06-16 14:39 | Outpatient (AMB) | payer OTHER, SELFPAY ==
[2025-06-16 14:40] VITALS: BP 132/58; PULSE 87; O2SAT 98; BMI 27.9
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
--- OUTSIDE RECORDS SUMMARY | 2025-06-16 17:06 | XMS_ITS ---
Author Name [facility] Organization Unknown Encounters Encounter Type Encounter Reason Primary Diagnosis Location Date Ambulatory [facility] 06/21/2024 Care Team Organization Name Specialty Phone Email Start Date End Da te [facility] [id number]
--- OUTSIDE RECORDS SUMMARY | 2025-06-16 17:06 | XMS_ITS | Clinical Summary ---
Author Organization [facility] Address [address] [place] [address] Care Team Providers Care Save All Operator Name Role Phone Unavailable Primary Care Provider [...] 180 mg by mouth daily. 0 Active [id number], OTIC, (CORTISPORIN) 1 % SOLN otic solution [...] (1 of 2) 2014 Influenza Vaccine (#1) 2025 RSV Adult > 60+ Yrs or [...]
--- OUTSIDE RECORDS SUMMARY | 2025-06-16 17:06 | XMS_ITS | Data Portability ---
Author Organization [place] - [facility], All[facility] Address [address] [address] Care Team Providers Care Condominium Manager Name Role Phone ORALIARIP LIGHT Primary Care Provider Assessment Encounter Date Assessment Date Assessment LastModified by Organization Details LastModified Time 03/20/2024 03/20/2024 58-year-old female presents for cerumen removal. On examination there is no cerumen and ears are normal to inspection. Will continue observation and she may follow-up as needed. [email or web address] Not available 03/20/2024 10:17:18 10/16/2024 10/16/2024 59-year-old female presents for cerumen removal. Minimal cerumen removed bilaterally. TMs normal to inspection. Follow-up in 1 year for repeat procedure. [email or web address] Not available 10/16/2024 09:50:24 Plan of Treatment Reminders Order Date Submit Date Provider Last Modified By Organization Details Last Modified Time Details Appointments None record ed. Lab None record ed. Referral None record ed. Procedures None record ed. Surgeries None record ed. Imaging None record ed. Medication Orders None record ed. Patient TargetsNo targets recorded. Patient InstructionsNo instructions recorded. Reason for Referral None Reported. Problems Name Problem SNOMED Code Status Onset Date Resolution Date Notes Provider Name and Address Organization Details Recorded Time Unilatera l sensorine ural hearing loss with unrestric arnaldo hearing on the contralat eral side Active 2013 Sensorine ural HL, unilatera l; Note: Date Diagnosed : 4 11:17 AM (389.15) Not Available [facility] 4 03:03:48 Sensorine ural hearing loss 39600898 Active 2015 Sensorine ural hearing loss, unilatera l, left ear, with unrestric arnaldo hearing on the contralat eral side; Note: Date Diagnosed : 6 1:39 PM (H90.42) Not Available [facility] 4 03:03:48 Impacted cerumen in right ear [id number] 25753 Active 2017 Impacted cerumen, right ear; Note: Date Diagnosed : 8 1:47 PM (H61.21) Not Available [facility] 4 03:03:49 Allergic rhinitis caused by pollen 77332540 Active 2022 Allergic rhinitis due to pollen; Note: Date Diagnosed : 11/07/2022 11:04 AM (J30.1) Not Available [facility] 4 03:03:46 Allergic rhinitis 41741810 Active 2022 Other allergic rhinitis; Note: Date Diagnosed : 03/30/2023 9:36 AM (J30.89) Not Available [facility] 4 03:03:47 Impacted cerumen of bilateral ears 24241623077 76125 Active 2022 Impacted cerumen, bilateral ; Note: Date Diagnosed : 03/30/2023 9:36 AM (H61.23) Not Available [facility] 4 03:03:48 Problem Notes None recorded. Procedures Surgical History Date Name Laterality Status Provider Name and Address Organization Details Recorded Time 5 Cerumen removal without microscope bilat juanita RODRIGUEZ PA-C [address] [place] [address], [phone], [facility] - [facility] 10/16/2024 09:50:07 Imaging Results None recorded. Procedure Notes None recorded. Medical Equipment None Reported. Medications Name Sig Start Date Stop Date Status Note LastModified by Organization Details LastModified Time amlodipine 5 mg tablet TAKE 1 TABLET BY MOUTH EVERY DAY active Not Available Not Available No t Available ketorolac 0.5 % eye drops INSTILL 1 DROP INTO SURGICAL EYE 3 TIMES A DAY BEGINNING 2 DAYS PRIOR TO SURGERY active Not Available Not Available No t Available ferrous sulfate 325 mg (65 mg iron) tablet active Medicatio n ID: [id number] Br and Name: ferrous sulfate S end Method: E-Prescri bed Subs Allowed: subs OK Specia l Instructi on: TAKE 1 TABLET BY MOUTH 3 TIMES A DAY Medic ationGene ricName: ferrous sulfate Not Available Not Available Not Available triamcinol one acetonide 55 mcg nasal spray aerosol INHALE 2 SPRAYS EACH NOSTRIL ONCE A DAY X 1 MONTH THEN DECREASE 1 SPRAY ONCE A DAY active Not Available Not Available No t Available omeprazole 20 mg capsule,de layed release TAKE 1 CAPSULE BY MOUTH EVERY DAY active Not Available Not Available No t Available montelukas t 10 mg tablet TAKE 1 TABLET BY MOUTH DAILY AT BEDTIME FOR 30 DAYS active Not Available Not Available No t Available azelastine 137 mcg (0.1 %) nasal spray INHALE 1 SPRAY IN EACH NOSTRIL TWICE DAILY active Not Available Not Available No t Available estradiol 0.01% (0.1 mg/gram) vaginal cream INSERT 1 GRAM VAGINALLY TWICE WEEKLY active Not Available Not Available No t Available methylpred nisolone 4 mg tablets in a dose pack TAKE 6 TABLETS ON DAY 1 DIRECTED ON PACKAGE AND DECREASE BY 1 TAB EACH DAY FOR A TOTAL OF 6 DAYS active Not Available Not Available No t Available albuterol sulfate HFA 90 mcg/actuat ion aerosol inhaler INHALE 2 PUFFS BY MOUTH EVERY 4 HOURS NEEDED active Not Available Not Available No t Available omeprazole 20 mg tablet,del ayed release TAKE 1 TABLET BY MOUTH EVERY DAY -DO NOT CRUSH, CHEW, OR SPLIT active Not Available Not Available No t Available Trelegy Ellipta 200 mcg-62.5 mcg-25 mcg powder for inhalation INHALE 1 PUFF BY MOUTH EVERY DAY active Not Available Not Available No t Available Vitals Date Recorded Body height Body mass index (BMI) Body weight Provider Name and Address Organization Details Last Updated DateTime 10/16/2024 167.64 cm 31.5 kg/m2 33186.51 g Jill Serrato [place] - [facility] 10/16/2024 09:28:58 Date Recorded Body height Body mass index (BMI) Body weight Provider Name and Address Organization Details Last Updated DateTime 03/20/2024 167.64 cm 31.5 kg/m2 87891.51 g Dana Lopez [place] - [facility] 03/20/2024 09:30:42 Social History None recorded. Functional Status None recorded. Mental Status None recorded. Family History Nothing Reported. Medical History No medical history recorded. Gynecological HistoryNo gynecological history recorded. Obstetrics History GPAL:G 0 P 0 0 0 0 Past Encounters Encounter ID Performer Location Encounter Start Date Encounter Closed Date Diagnosis/Indication Diagnosis SNOMED-CT Code Diagnosis ICD10 Code Diagnosis IMO Codes Diagnosis Note [id number] DARIN RODRIGUEZ PA-C [facility] [address] [address] 03/20/2024 09:14:38 03/20/2024 09:41:27 Sensorineural hearing loss 67363941 H90.42 [id number] DARIN RODRIGUEZ PA-C [facility] [address] [address] 10/16/2024 09:15:13 10/16/2024 09:40:33 Sensorineural hearing loss 37494515 H90.42 Impacted c erumen of bilateral ears [id number] 882829 H61.23 Health Concerns Section Related Observation LastModified by Organization Detai ls LastModified Time None Recorded Concern Status LastModified by Organization Details LastModified Time None Recorded Advance Directives Directive None Recorded Payers Insurance Date Sequence Insurance Name Policy Number Policy Cannon Covered Member ID Cannon Member ID Guarantor Name 12/12/2024 1 [employer] [facility] [id number] Deirdre Upton [id number] Deirdre Upton Notes Date Note Type Note Provider Name and Address Organization Details Recorded Time 03/20/2024 text/html ROS as noted in the [facility] 58-year-old female presents for cerumen removal. She has had no acute issues since her last visit with her ears. MARCOS PAGAN MD [address] [place] [address], [phone], [facility] - [facility] 03/20/2024 17:21:41 10/16/2024 text/html ROS as noted in the [facility] 59-year-old female presents for cerumen removal. No acute issues since her last visit. MARCOS PAGAN MD [address] [place] [address],[address], [phone], [facility] - [facility] 10/16/2024 17:31:24 OBGyn Episode No OBEpisode recorded.
--- OUTSIDE RECORDS SUMMARY | 2025-06-16 17:06 | XMS_ITS | Clinical Summary ---
Author Organization [facility] [address] [facility] Address [address] [place] [address] Phone Care Team Providers Care Tire Finisher Name Role Phone Tess Melo MD Primary [...] Years (1 of 2 - PCV) 1983 Cervical Cancer Screening: Pap Smear 1985 Zoster Vaccines (1 of 2) 2014 Cholesterol Screening (Lipid Panel) 08/14/2022 HIV Screening 08/14/2022 Hepatitis C Screening 08/14/2022 Social Influencers of Health Screening 08/14/2022 RSV Immunization Adult Patients (1 - Risk 60-74 years 1-dose series) 2024 Depression Screening 09/11/2024 Hypertension/CHF/CAD Annual BMP Blood Test 09/19/2024 COVID-19 Vaccine ( season) 2025 09/14/2021, 12/14/2020, 11/23/2020 Influenza Vaccine (#1) 2025 , 06/23/2022, 07/21/2021, Additional history exists Colorectal Cancer [...] Most Recently Relevant to Health Maintenance Insurance [employer] [facility] Care Teams Tire Finisher Relationship Specialty Start Date End Date Tess Melo MD [address] [place] [phone] PCP - General Internal Medicine 09/10/24
== END 2025-06-16 15:04 | disposition home or self-care (01) ==
LOC: HO.HPS 14:40
PROVIDERS: PCP Internal Medicine; Visit Provider Hospitalist
DX: J45.51 Severe persistent asthma with (acute) exacerbation (principal); J40 Bronchitis, not specified as acute or chronic; Z91.048 Other nonmedicinal substance allergy status; D64.9 Anemia, unspecified; K44.9 Diaphragmatic hernia without obstruction or gangrene
CPT/HCPCS: 99215

== ENCOUNTER → 2025-07-15 09:18 | Outpatient (BNV) | payer OTHER, SELFPAY | PROVIDERS: PCP Internal Medicine; Visit Provider Nurse Practitioner Family | DX: D50.9 Iron deficiency anemia, unspecified (principal); K21.9 Gastro-esophageal reflux disease without esophagitis; K44.9 Diaphragmatic hernia without obstruction or gangrene | CPT/HCPCS: 99204 ==

== ENCOUNTER 2025-08-05 13:30 | Outpatient (RCR) | payer OTHER, SELFPAY ==
[2025-07-29 12:11] VITALS: BP 173/69; PULSE 90; RESP 16; TEMP 36.7; O2SAT 98
[2025-08-05 13:50] VITALS: BP 139/71; PULSE 84; RESP 16; TEMP 36.7; O2SAT 98
== END 2025-08-05 14:21 | disposition home or self-care (01) ==
LOC: HO.INF 13:30
PROVIDERS: Visit Provider Nurse Practitioner Family
DX: D50.9 Iron deficiency anemia, unspecified (principal)
CPT/HCPCS: 96365; J1439